=== PATIENT | male | born 1945 | race Caucasian/White ===

== ENCOUNTER 2016-10-17 09:22 | Inpatient (IN) | payer OTHER, BC ==
--- NOTE | 2016-10-17 09:50 | EDPHY ---
H & P Stated Complaint: increasing encephalopathy Source: Patient Exam Limitations: Clinical condition - Personal History Current Tetanus Diphtheria and Acellular Pertussis (TDAP): Yes - Medical/Surgical History Hx Asthma: No Hx Chronic Respiratory Disease: No Hx Diabetes: No Hx Cardiac Disease: Yes Hx Renal Disease: No Hx Cirrhosis: No Hx Alcoholism: No Hx HIV/AIDS: No Hx Splenectomy or Spleen Trauma: No Other PMH: HTN, prostate removed, maleria, cellulitis, bells palsy, vertigo, craniotomy for glioblastoma multiform, - Social History Smoking Status: Never smoked Time Seen by Provider: 10/17/16 09:24 HPI/ROS: CHIEF COMPLAINT: Weakness, history of glioblastoma multiform HISTORY OF PRESENT ILLNESS: difficult to obtain full HPI the patient is altered and there are no family members at bedside. They report from EMS is that there is possibility of increased swelling, the patient has a history of glioblastoma multiform. The patient denies any headache any kind. He is alert to person and place but disoriented to time. He denies any falls that he is aware of. No obtainable modifying factors for this at this time. We will obtain more history upon arrival of the spouse. REVIEW OF SYSTEMS: Ten systems reviewed and are negative unless otherwise noted in the HPI EXAMINATION General Appearance: Alert, no distress Head: normocephalic, atraumatic Eyes: Pupils equal and round, no conjunctival pallor or injection EOMs intact. ENT, Mouth: Mucous membranes moist . Mild erythema. No edema. Uvula midline. Neck: Normal inspection, supple, non-tender Respiratory: Lungs are clear to auscultation . No wheezing, rhonchi, consolidation or diminishment Cardiovascular: Regular rate and rhythm. No murmur. Pulses intact distally. Gastrointestinal: Abdomen is soft and nontender . Nonacute Back: non-tender, no bony abnormalities Neurological: alert to person and place. Disoriented to time. There is no focal deficit on examination of the cranial nerves. Strength is 5/5 in all limbs. No nystagmus. No pronator drift Skin: Warm and dry, no rash Extremities: Nontender, no pedal edema Psychiatric: flat affect. No seizure-like activity DIFFERENTIAL DIAGNOSES: Including but not limited to general weakness, chronic condition, worsening condition related to glioblastoma multiform, hypokalemia, hyponatremia, influenza, strep MDM: 9:44am History of glioblastoma multiform of uncertain chronicity of state. Patient is by himself at this time but reported that his family on the way. He does not have any headache. He is not sure if he fell, but he is disoriented to time. He is alert to person and place. He is in no acute distress. I did order a stat CT scan of the head and we will await family members for further workup. The report from EMS is that the feeling is like him to be placed in hospice for uncertain details will discuss with an MRI. I attempted to contact the with no success 10:15 a.m. I spoke with the on-call physician from [facility], Dr. Reilly. he informed me that the on-call physician overnight spoke with the patient's . The was concerned that she was having difficulty waking him up, thus they recommended he present to the ER. At time of my examination he is awake without stimulus. There is no mention of fall, seizure-like activity or other injuries or complaints. The is yet to arrive will speak with her upon her arrival. Dr. Reilly said that the steroids had recently increased this seemed to help his deterioration but there is no other information. He did note that a repeat MRI has been planned but not obtained at this time. 11:45 a.m. I spoke with the regarding the patient's care. They are requesting hospice evaluation and this is been ordered. She informed me that there was an MRI performed within the last 2 weeks. I have paged the PA with his oncologist to discuss whether he needs an MRI here prior to disposition. He has not exhibited any seizure-like activities, he is receiving his Keppra and Vimpat IV piggyback at this time. No further concerns or questions at this time. 3:30pm I have re-evaluated the patient. He is in no acute distress. Vital signs are stable we are still waiting for definitive determination whether the patient is hospice candidate versus admission versus discharge home for further evaluation. 4:40 p.m. have discussed the case with the patient's multiple times. The patient is not ready to make that decision on hospice versus ongoing care. Thus we will proceed with admission. Patient and the spouse are more comfortable with this plan and then with deciding about hospice today. He remains hemodynamically stable, but he is not tolerating p.o. on his own. He will benefit from IV fluid resuscitation and possibly the nasogastric tube placement for ongoing medications. I discussed case with the hospitalist Dr. Hernandez, and she will admit the patient for further care. SUPERVISION:Patient was evaluated in conjunction with the supervising physician. Please see their note for details. (Carlo Ram) Constitutional: Initial Vital Signs Temperature (C) 37.2 C 10/17/16 09:22 Heart Rate 81 10/17/16 09:22 Respiratory Rate 18 10/17/16 09:22 Blood Pressure 125/75 H 10/17/16 09:22 O2 Sat (%) 91 L 10/17/16 09:22 O2 Delivery Mode Room Air O2 (L/minute) 3 Allergies/Adverse Reactions: Iodinated Contrast Media - Oral and [Iodinated Contrast Media - IV Dye] Allergy (Verified 03/27/15 16:44) oxycodone HCl [From Percocet] Allergy (Verified 10/17/16 21:25) Home Medications: Medication Instructions Recorded Bevacizumab [Avastin] 0 mg IV Q14D 11/04/15 Lisinopril [Zestril 20 mg (*)] 20 mg PO DAILY #0 tab 11/11/15 Acetaminophen [Tylenol 325mg (*)] 325 mg PO DAILY PRN 10/17/16 Dexamethasone [Decadron 4 MG (*)] 2 mg PO BID 10/17/16 Hydrochlorothiazide [HCTZ (*)] 25 mg PO DAILY 10/17/16 Lacosamide [Vimpat 50 mg (*)] 150 mg PO BID 10/17/16 Polyethylene Glycol 3350 [Miralax 17 gm PO DAILY PRN 10/17/16 17 gm (*)] Warfarin Sodium [Coumadin 5MG (*)] 10 mg PO SUTH 10/17/16 Warfarin Sodium [Coumadin 7.5MG 7.5 mg PO MOTUWEFRSA 10/17/16 (*)] levETIRAcetam [Keppra Oral Liquid] 15 ml PO BID 10/17/16 Medical Decision Making Other Provider: I evaluated and participated in the management of the patient. I also evaluated the patient independently. My co-signature indicates that I have reviewed this chart and I agree with the findings and plan of care as documented. My personal H&P findings include: [ ] This is a 71-year-old male with history of glioblastoma multiform a who presents to the emergency department for weakness. On initial presentation the history was very limited as there is no family members were present with the patient. Patient was alert but oriented only to person and place. He cannot describe exactly why he is here but he does tell me that he is weak. Examination demonstrates an 8-year-old male alert, no obvious distress, neurologic exam: Patient is alert and oriented to person and place but disoriented to time. Neurologic exam is grossly nonfocal. Patient did have a CT scan obtained on arrival which demonstrates no hemorrhage. Patient's did present and reports to me that he has been quite weak and complaining of a sore throat. No fever. Multiple conversations were held between the patient's , the patient, case filler, hospice, and Carlo Ram the PA. Patient's course was also discussed with Dr. Reilly, on-call for [facility]. Initially plans were made the patient would be transferred from the emergency department to hospice. However the and patient would like to discussed treatment options, if any, with patient's primary oncologist, Dr. Roman. It is unclear to me if there are further palliative or active chemotherapeutic or radiation treatments available for this patient. However, I do believe that the is no longer able to care for the patient at home given his significant weakness. Until the situation has been sorted, patient was admitted to the hospital pending oncology evaluation, oncology consultation, palliative Care consultation , as well as treatment for his generalized weakness. (Sarai Peck) - Data Points Laboratory Results: Laboratory Results 10/17/16 10:40 10/17/16 10:40 Medications Given: Discontinued Medications Enoxaparin Sodium (Lovenox) 40 mg SC DAILY [facility] Stop: 04/16/17 08:59 Last Admin: 10/18/16 10:21 Dose: 40 mg Hydrochlorothiazide (Hydrochlorothiazide) 25 mg PO DAILY [facility] Stop: 04/16/17 08:59 Last Admin: 10/18/16 10:22 Dose: 25 mg Lacosamide 200 mg/ Sodium (Chloride) 70 mls @ 280 mls/hr IV EDNOW ONE Stop: 10/17/16 10:57 Last Admin: 10/17/16 11:25 Dose: 70 mls Levetiracetam 500 mg/ Sodium (Chloride) 105 mls @ 420 mls/hr IV EDNOW ONE Stop: 10/17/16 10:57 Last Admin: 10/17/16 11:42 Dose: 105 mls Sodium Chloride (Ns) 500 mls @ 0 mls/hr IV ONCE ONE PRN Reason: Wide Open Stop: 10/17/16 10:55 Last Admin: 10/17/16 11:25 Dose: 500 mls Departure - Departure Disposition: [facility] Acute Clinical Impression: Glioblastoma multiforme, Encephalopathy, Weakness Condition: Good
--- NOTE | 2016-10-17 10:06 | CT ---
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 Comparison: MRI January 2016. Technique: Axial computed tomographic images of the brain without contrast. Dose reduction techniques were utilized. Findings: Calcifications noted in the left temporal lobe in the region of the AVM. Calcifications in the left frontal lobe cortex and subcortical white matter at the level of the lateral ventricles pos terior parasylvian region corresponding to the region of CyberKnife glioblastoma multiforme. No evide nce of acute intraparenchymal hemorrhage or epidural/subdural hematomas. Hypodensities in the brainst em from mild white matter disease. Ventricles, cisterns, and sulci are widened consistent with atroph y. No hydrocephalus, midline shift/herniation, or epidural/subdural hematomas. No acute intraparenchy mal hemorrhage or mass effect. Cerebrovascular atherosclerosis. Hypodensities in the white matter of bilateral cerebral hemispheres. Bone windows demonstrate no displaced fractures. Paranasal sinuses a nd mastoid air cells are clear. Impression: 1. Left temporal and frontal calcifications from CyberKnife treated AVM and glioblastoma multiforme. 2. No acute hemorrhage, hydrocephalus, or mass effect. 3. Cerebrovascular atherosclerosis. 4. No definite acute infarct. 5. Mild diffuse atrophy and moderate microvascular ischemic gliosis. 6. Consider MRI of the brain without and with contrast enhancement, if there is continued clinical co ncern. Findings and recommendations discussed with Emergency Department, Carlo Ram PA-C at 0955 hours to day. Final report concurs with initial preliminary interpretation.
[2016-10-17] MEDS ORDERED: LACOSAMIDE 200 MG in NS 50 ML IV ONE (10:43)
[2016-10-17] MEDS ORDERED: levETIRAcetam 500 MG in NS 100 ML IV ONE (10:43)
[2016-10-17] MEDS ORDERED: NS 500 ML IV ONE (10:54)
[2016-10-17 11:06] LABS: % IMMATURE GRANULYOCYTES 0.2 % (0.0-1.1); ABSOLUTE IMMATURE GRANULOCYTES 0.02 10^3/uL (0.00-0.10); ADD DIFF? NO; ADD MORPH? NO; ADD SCAN? NO; ATYPICAL LYMPHOCYTE FLAG 0 (0-99); FRAGMENT RBC FLAG 0 (0-99); HEMATOCRIT 46.6 % (40.0-51.0); HEMOGLOBIN 15.9 g/dL (13.7-17.5); LEFT SHIFT FLG 0 (0-99); LIPEMIA HEMOLYSIS FLAG 90 (0-99); MEAN CELL HEMOGLOBIN CONCENTR. 34.1 g/dL (32.4-36.7); MEAN CELL VOLUME 90.8 fL (81.5-99.8); PLATELET CLUMPS FLAG 0 (0-99); PLATELET COUNT 171 10^3/uL (150-400); RED BLOOD CELL COUNT 5.13 10^6/uL (4.40-6.38); RED CELL DISTRIBUTION WIDTH 14.4 % (11.5-15.2)
[2016-10-17 11:15] LABS: INR 3.17 (0.83-1.16)
[2016-10-17 11:16] LABS: APTT 42.1 SEC (23.0-38.0)
[2016-10-17 11:29] LABS: ALANINE AMINOTRANSFERASE 37 IU/L (21-72); ALBUMIN 3.5 g/dL (3.5-5.0); ALKALINE PHOSPHATASE 71 IU/L (38-126); ANION GAP 12 mEq/L (8-16); ASPARTATE AMINOTRANSFERASE 26 IU/L (17-59); BILIRUBIN,TOTAL 1.1 mg/dL (0.1-1.4); CARBON DIOXIDE 27 mEq/l (22-31); CHLORIDE 106 mEq/L (97-110); CREATININE 0.9 mg/dL (0.7-1.3); GLOMERULAR FILTRATION RATE > 60; GLUCOSE 89 mg/dL (70-100); POTASSIUM 3.6 mEq/L (3.5-5.2); SODIUM 145 mEq/L (134-144); TOTAL PROTEIN 6.6 g/dL (6.3-8.2)
[2016-10-17] MEDS ORDERED: ACETAMINOPHEN 325 MG TAB PO PRN ×2 (20:50→20:53)
[2016-10-17] MEDS ORDERED: HYDROmorphONE/DILAUDID 1 MG/ML SYR IVP PRN (20:50)
[2016-10-17] MEDS ORDERED: PROMETHAZINE HCL 25 MG/ML INJ IVP PRN (20:50)
[2016-10-17] MEDS ORDERED: LORazepam 2 MG/ML INJ IVP PRN (20:50)
[2016-10-17] MEDS ORDERED: oxyCODONE IR 5 MG TAB PO PRN (20:50)
[2016-10-17] MEDS ORDERED: LORazepam 0.5 MG TAB PO PRN (20:50)
[2016-10-17] MEDS ORDERED: ONDANSETRON DISINTEGRATING 4 MG TAB PO PRN (20:50)
[2016-10-17] MEDS ORDERED: ONDANSETRON 4 MG/2 ML VIAL IVP PRN (20:50)
[2016-10-17] MEDS ORDERED: POLYETHYLENE GLYCOL 3350 17 GM PKT PO PRN (20:53)
[2016-10-17] MEDS: levETIRAcetam 500 MG/5 ML UDCUP PO SCH (21:46)
[2016-10-17] MEDS: DEXAMETHASONE 2 MG TAB PO SCH (21:46)
[2016-10-17] MEDS: WARFARIN SODIUM 7.5 MG TAB PO SCH (21:50)
[2016-10-17] MEDS: LACOSAMIDE 50 MG TAB PO SCH (21:50)
[2016-10-17] MEDS: NS 1,000 ML IV SCH (21:57)
[2016-10-17 22:53] LABS: COLOR YELLOW; LEUKOCYTE ESTERASE,URINE NEGATIVE (NEGATIVE); NITRITE,URINE NEGATIVE (NEGATIVE)
[2016-10-17 22:55] LABS: MUCUS TRACE /lpf (NONE-1+)
--- NOTE | 2016-10-17 23:11 | PDGENHP ---
History and Physical - Chief Complaint generalized weakness - History of Present Illness 71 yo M with hx of GBM currently on avastin therapy admitted with worsening weakness and difficulty caring for him at home. Patient has had expressive aphasia for some time, per and son in law, this is recently much worse. He is also getting so weak that he is no longer able to ambulate independently safely. He has not been tolerating his medications at home and unable to get to the bathroom. He is now essentially non verbal completely, though he had been able to communicate some until recently. He has also having increasing difficulty managing his secretions, and seems to have phlegm at all times in his chest. Family has been uncertain when they should consider transitioning to hospice, as they feel that he has been responding to the avastin, and they are wondering if he will continue to improve, or when to decide to discontinue treatment and go to comfort only. He is followed by Dr. Roman, but they cannot see him until later this week. Family came to [facility] they feel they can not care for him at home. History Information - Allergies/Home Medication List Allergies/Adverse Reactions: Iodinated Contrast Media - Oral and [Iodinated Contrast Media - IV Dye] Allergy (Verified 03/27/15 16:44) oxycodone HCl [From Percocet] Allergy (Verified 10/17/16 21:25) Home Medications: Bevacizumab [Avastin] 0 mg IV Q14D 11/04/15 [Last Taken 10/12/16] Acetaminophen [Tylenol 325mg (*)] 325 mg PO DAILY PRN 10/17/16 [Last Taken Unknown] Dexamethasone [Decadron 4 MG (*)] 2 mg PO BID 10/17/16 [Last Taken 10/16/16] Hydrochlorothiazide [HCTZ (*)] 25 mg PO DAILY 10/17/16 [Last Taken 10/16/16] Lacosamide [Vimpat 50 mg (*)] 150 mg PO BID 10/17/16 [Last Taken 10/17/16] Polyethylene Glycol 3350 [Miralax 17 gm (*)] 17 gm PO DAILY PRN 10/17/16 [Last Taken Unknown] Warfarin Sodium [Coumadin 5MG (*)] 10 mg PO SUTH 10/17/16 [Last Taken 10/16/16 10mg] Warfarin Sodium [Coumadin 7.5MG (*)] 7.5 mg PO MOTUWEFRSA 10/17/16 [Last Taken Unknown] levETIRAcetam [Keppra Oral Liquid] 15 ml PO BID 10/17/16 [Last Taken 10/17/16] I have personally reviewed and updated: family history, medical history, social history, surgical history - Past Medical History cancer (GBM, diagnosed in 04/08), DVT, hypertension, pulmonary embolism, seizures - Surgical History Additional surgical history: GBM resection - Family History Positive for: non-pertinent - Social History Smoking Status: Never smoked Alcohol Use: None Drug Use: None Additional social history: , son in law present as well Review of Systems Review of Systems: unobtainable as patient is non verbal Physical Exam Temp Pulse Resp BP Pulse Ox 36.9 C 106 H 22 H 150/100 H 96 10/17/16 20:10 10/17/16 20:10 10/17/16 20:10 10/17/16 20:10 10/17/16 20:10 O2 (L/minute) 3 Constitutional: chronically ill appearing, uncomfortable, unkempt Eyes: PERRL Ears, Nose, Mouth, Throat: moist mucous membranes, poor dentition Cardiovascular: regular rate and rhythym, no murmur, rub, or gallop Respiratory: no respiratory distress, inspiratory crackles, bronchial breath sounds Gastrointestinal: normoactive bowel sounds, soft, non-tender abdomen Genitourinary: no bladder fullness Skin: warm, normal color Musculoskeletal: full muscle strength, no muscle tenderness Neurologic: CN II-XII Intact Psychiatric: agitated, other (non verbal, moves all 4 spontaneously, impulsive) , No interacting appropriately Lab Data & Imaging Review 10/17/16 10:40 10/17/16 10:40 WBC 9.22 10^3/uL (3.80-9.50) 10/17/16 10:40 RBC 5.13 10^6/uL (4.40-6.38) 10/17/16 10:40 Hgb 15.9 g/dL (13.7-17.5) 10/17/16 10:40 Hct 46.6 % (40.0-51.0) 10/17/16 10:40 MCV 90.8 fL (81.5-99.8) 10/17/16 10:40 MCH 31.0 pg (27.9-34.1) 10/17/16 10:40 MCHC 34.1 g/dL (32.4-36.7) 10/17/16 10:40 RDW 14.4 % (11.5-15.2) 10/17/16 10:40 Plt Count 171 10^3/uL (150-400) 10/17/16 10:40 MPV 11.0 fL (8.7-11.7) 10/17/16 10:40 Neut % (Auto) 72.6 % (39.3-74.2) 10/17/16 10:40 Lymph % (Auto) 11.5 % (15.0-45.0) L 10/17/16 10:40 [place] % (Auto) 12.7 % (4.5-13.0) 10/17/16 10:40 Eos % (Auto) 2.6 % (0.6-7.6) 10/17/16 10:40 Baso % (Auto) 0.4 % (0.3-1.7) 10/17/16 10:40 Nucleat RBC Rel Count 0.0 % (0.0-0.2) 10/17/16 10:40 Absolute Neuts (auto) 6.69 10^3/uL (1.70-6.50) H 10/17/16 10:40 Absolute Lymphs (auto) 1.06 10^3/uL (1.00-3.00) 10/17/16 10:40 Absolute Monos (auto) 1.17 10^3/uL (0.30-0.80) H 10/17/16 10:40 Absolute Eos (auto) 0.24 10^3/uL (0.03-0.40) 10/17/16 10:40 Absolute Basos (auto) 0.04 10^3/uL (0.02-0.10) 10/17/16 10:40 Absolute Nucleated RBC 0.00 10^3/uL (0-0.01) 10/17/16 10:40 Immature Gran % 0.2 % (0.0-1.1) 10/17/16 10:40 Immature Gran # 0.02 10^3/uL (0.00-0.10) 10/17/16 10:40 PT 33.0 SEC (12.0-15.0) H 10/17/16 10:40 INR 3.17 (0.83-1.16) H 10/17/16 10:40 APTT 42.1 SEC (23.0-38.0) H 10/17/16 10:40 Sodium 145 mEq/L (134-144) H 10/17/16 10:40 Potassium 3.6 mEq/L (3.5-5.2) 10/17/16 10:40 Chloride 106 mEq/L (97-110) 10/17/16 10:40 Carbon Dioxide 27 mEq/l (22-31) 10/17/16 10:40 Anion Gap 12 mEq/L (8-16) 10/17/16 10:40 BUN 29 mg/dL (7-23) H 10/17/16 10:40 Creatinine 0.9 mg/dL (0.7-1.3) 10/17/16 10:40 Estimated GFR > 60 10/17/16 10:40 Glucose 89 mg/dL (70-100) 10/17/16 10:40 Calcium 9.0 mg/dL (8.5-10.4) 10/17/16 10:40 Total Bilirubin 1.1 mg/dL (0.1-1.4) 10/17/16 10:40 AST 26 IU/L (17-59) 10/17/16 10:40 ALT 37 IU/L (21-72) 10/17/16 10:40 Alkaline Phosphatase 71 IU/L (38-126) 10/17/16 10:40 Total Protein 6.6 g/dL (6.3-8.2) 10/17/16 10:40 Albumin 3.5 g/dL (3.5-5.0) 10/17/16 10:40 Urine Color YELLOW 10/17/16 22:25 Urine Appearance CLEAR 10/17/16 22:25 Urine pH 5.0 (5.0-7.5) 10/17/16 22:25 Ur Specific [place] 1.025 (1.002-1.030) 10/17/16 22:25 Urine Protein NEGATIVE (NEGATIVE) 10/17/16 22:25 Urine Ketones TRACE (NEGATIVE) H 10/17/16 22:25 Urine Blood 2+ (NEGATIVE) H 10/17/16 22:25 Urine Nitrate NEGATIVE (NEGATIVE) 10/17/16 22:25 Urine Bilirubin NEGATIVE (NEGATIVE) 10/17/16 22:25 Urine Urobilinogen NEGATIVE EU (0.2-1.0) 10/17/16 22:25 Ur Leukocyte Esterase NEGATIVE (NEGATIVE) 10/17/16 22:25 Urine RBC 5-10 /hpf (0-3) H 10/17/16 22:25 Urine WBC 1-3 /hpf (0-3) 10/17/16 22:25 Ur Epithelial Cells TRACE /lpf (NONE-1+) 10/17/16 22:25 Urine Mucus TRACE /lpf (NONE-1+) 10/17/16 22:25 Urine Glucose NEGATIVE (NEGATIVE) 10/17/16 22:25 Influenza Typ A,B (DFA) NEGATIVE FOR FLU (NEGATIVE) 10/17/16 10:55 Group A Strep Screen NEGATIVE (NEGATIVE) 10/17/16 10:40 Group A Strep DNA NEGATIVE (NEGATIVE) 10/17/16 Unknown Visualized and Interpreted imaging results: Yes Interpretation: head CT without acute mass or hemorrhage, no significant change from prior Assessment & Plan Assessment: 71 yo M with GBM presenting with worsening weakness and FTT # generalized weakness/FTT: in setting of GBM and progressive disease. At this point, do not suspect that there is likely to be a secondary process responsible for his worsening weakness and aphasia. Discussed with family at length, they realize that hospice is likely in his future, though they are unclear if they should hope to see more improvements from avastin, as next # GBM: patient has likely exceeded his life expectancy already at this point, currently on avastin, no changes noted on imaging, though he continues to decline clinically. Palliative consult requested. Likely appropriate for hospice # dysphagia: patient noted to be having difficulty managing his secretions, given suction at bedside. Will get cxr to eval for aspiration. No abx for now # sz d/o: continue op medications, if patient unable to take po meds will need to transition to IV # hx of PE/DVT: INR therapeutic, will continue warfarin # dispo: IP status, will likely need > 48 hours for eval/mgmt of above Patient new to my care. Old records reviewed and summarized as above. Care plan reviewed with ER doctor, further hx obtained from patients present at bedside.
--- NOTE | 2016-10-17 23:22 | DX ---
Portable chest, single view. HISTORY: History of glioblastoma multiforme. Increasing weakness and shortness of breath. COMPARISON: October 2015. FINDINGS: There is a poor inspiratory effort. There is opacification in the right lower lobe suggesti ng pneumonia and atelectasis. Mild atelectasis left lower lobe. Heart size is stable. IMPRESSION: Probable pneumonia right lower lobe and mild atelectasis. Mild atelectasis left lower lob e.
[2016-10-18] MEDS: NS 1,000 ML IV SCH (08:15)
[2016-10-18] MEDS ORDERED: HYDROCHLOROTHIAZIDE 25 MG TAB PO SCH (09:00)
[2016-10-18] MEDS ORDERED: ENOXAPARIN 40 MG/0.4 ML SYR SC SCH (09:00)
[2016-10-18] MEDS: DEXAMETHASONE 2 MG TAB PO SCH ×2 (10:21→21:05)
[2016-10-18] MEDS: levETIRAcetam 500 MG/5 ML UDCUP PO SCH ×2 (10:22→21:33)
[2016-10-18] MEDS: LACOSAMIDE 50 MG TAB PO SCH ×2 (10:22→21:33)
[2016-10-18] MEDS: LISINOPRIL 20 MG TAB PO SCH (10:23)
--- NOTE | 2016-10-18 10:25 | HOSPPROG ---
Hospitalist Progress Note Assessment/Plan: DIAGNOSIS: # suspect aspiration pneumonitis # ongoing dysphagia largely neurologic in origin # expressive aphasia of neurologic origin due to his glioblastoma # hypernatremia and suspect dehydration # Failure to thrive with severe deconditioning generalized weakness # progressive glioblastoma multiforme # History of seizure disorder # History of PE and DVT PLANS: -at this point will add antibiotic to cover for aspiration pneumonitis after discussion with his -general supportive care -palliative consult is ordered and I think this will be very helpful for his ; hospice would be very reasonable for him, particularly as it is expected that he will continue to have aspiration and recurrences of episodes like this -he will at this time either require placement in a care facility or somewhat will need to be found to give extensive assistance to his in caring for him at home -will minimize oral medicines at this point in order to reduce aspiration risk -may need to consider potentially tube feeding if hospice or palliative choices areavoided at this time SUBJECTIVE: The patient is unable to articulate words that are discernible and symptom evaluation is not possible, however he looks reasonably comfortable though quite weak and debilitated OBJECTIVE Vitals reviewed: Still having significant fevers with some tachycardia and tachypnea, however blood pressures are elevated Exam: Awake but fairly lethargic, however does attempt to respond to questions and does follow commands skin warm dry color ok resps not labored lungs very diminished and rhonchorous breath sounds heart regular abd soft nondistended, appears nontender, bowel sounds present limbs warm, no edema iv site ok Objective: Vital Signs Temp Pulse Resp BP Pulse Ox 36.3 C 113 H 18 138/97 H 92 10/18/16 07:34 10/18/16 07:34 10/18/16 07:34 10/18/16 07:34 10/18/16 07:34 10/17/16 10/18/16 10/19/16 06:59 06:59 06:59 Intake Total 1275 Output Total 300 Balance 975 PT 33.0 SEC (12.0-15.0) H 10/17/16 10:40 INR 3.17 (0.83-1.16) H 10/17/16 10:40 ICD10 Worksheet Patient Problems: Problems Problem Status Diagnosed Elevated troponin Acute Encephalopathy Acute Expressive aphasia Acute Glioblastoma multiforme Acute Palliative care encounter Acute Weakness Acute Aphasia Acute
--- NOTE | 2016-10-18 10:34 | GCON ---
[f rep st] CONSULTATION ONCOLOGY CONSULTATION NOTE. REASON FOR CONSULTATION: Progressive decline in mental status with history of glioblastoma multiforme. HISTORY OF PRESENT ILLNESS: Eldon Gupta is a 71-year-old male diagnosed with left frontal lobe multicentric glioblastoma multiforme in March of 2015. The disease was unresectable and he was initially treated with temozolomide and radiation therapy. He progressed after several months and was started on Avastin in June of 2015. He has been relatively stable now for over a year while on Avastatin. He was diagnosed with large volume pulmonary emboli in October of 2015, and has been on Coumadin since. He underwent a course of stereotactic radiation to the tumor bed with Dr. Guevara in February 2016. More recently he has been declining with decreased mentation. He was seen by Dr. Roman about 2 weeks ago in the office. Dr. Roman was concerned about the possibility of progressive disease, and increased his Decadron dose to see if that would improve some of his symptoms. His reports that he really had no improvement with the higher dose. He had a CT scan done last night after presenting to the emergency room with increasing confusion and altered mental status. The CT was compared to an MRI from January of 2016. There was no evidence of acute hemorrhage, hydrocephalus or mass effect. He had evidence of left temporal and left frontal calcifications from CyberKnife therapy for previous treatments for both the GVM and temporal AVM. The patient's is with him this morning. She reports that he has not been eating and has had difficulty swallowing any type of food, as well as having difficulty handling his secretions. In the emergency room a chest x-ray showed a right lower lobe infiltrate and left lower lobe atelectasis. Last evening he had a temperature to 38.2. The patient is a DNR. His states that she is no longer able to care for him at home. She is open to the idea of hospice, but is interested in identifying anything that may be able to temporarily improve his mental status. The patient is aphasic but is able to understand. PAST MEDICAL HISTORY: Pulmonary emboli, seizures, prostate cancer in 2010 treated with radical prostatectomy. FAMILY HISTORY: His father had a DVT. SOCIAL HISTORY: He is to [place], and has a daughter. REVIEW OF SYSTEMS: Difficult to obtain, and notable for a fever last evening with decreased p.o. intake, and decreased mental status. The patient denies pain. Review of systems otherwise negative, other than HPI. PHYSICAL EXAMINATION: GENERAL: He is an elderly male with audible gurgling. He is sleepy but responds to his name. VITAL SIGNS: Blood pressure 138/97, heart rate 113, respirations 18, O2 saturation 92% on 3 L, T-max last night 38.2. HEENT: Pupils are equal. LUNGS: With bilateral rhonchi, decreased breath sounds at the bases. HEART: Tachycardiac. ABDOMEN: Soft, nontender. NEUROLOGIC: The patient is able to follow simple commands. EXTREMITIES: No edema. LABORATORY DATA: White blood cell count 9.2, hematocrit 46, platelets 171, INR of 3.2, metabolic panel unremarkable. Urine with 2+ blood and 5 to 10 RBCs. Chest x-ray, probable right lower lobe infiltrate with bilateral lower lobe atelectasis. IMPRESSION: This is a 71-year-old male who is now a year and a half out from initial diagnosis of unresectable GBM. He has been on Avastin therapy for over a year. While imaging studies have not shown obvious progression, clinically the patient is deteriorating with decreased mentation, impaired swallowing, poor p.o. intake, and inability to clear secretions. The patient has advanced directives and is DNR. His is no longer able to care for him at home. They are open to a discussion with Palliative Care, and I suspect that hospice will ultimately be most appropriate. Given the fever last evening, and the chest x-ray findings, the patient has likely aspirated. While this may be able to be temporarily treated with antibiotics, it does not address the overall larger picture, and the patient will likely continue to be an ongoing aspiration risk. We will plan on a trial of IV antibiotics. Palliative care has been consulted. We will continue to follow along with you. /[id number]/MODL MTDD
[2016-10-18] MEDS: ERTAPENEM 1 GM in NS 100 ML IV SCH (11:39)
--- NOTE | 2016-10-18 15:47 | PDPCPN ---
Palliative Care Progress Note Assessment/Plan: Referring provider: Dr Bernard Reason for consult: Complex medical decision making Symptom control HPI: Eldon Gupta is a 71 yo male with PMH glio dx 03/2015 s/p radiation, chemo, immunotherapy admitted to the hospital for increasing weakness. Ct head with stable brain tumor and no acute bleed. CXR with RLL PNA being treated with antibiotics. On steroids per outpt oncology with recent increase 2 weeks ago for progressive weakness. Palliative care consulted for complex medical decision making. Met with Alma outside of the room. Alma spoke about how Avastin has really helped extend a good quality of life for Eldon over this past year. She states he began having increasing trouble with ambulation and speech about 1 month ago. Since then he has declined and is not total care for all needs. Alma states she is hoping to learn more about what may be wrong with Eldon as she is not sure if it is his brain tumor or possible aspiration PNA contributing to his decline. She understands his cancer is not curable but is not sure if the Avastin is working still or not and waiting to hear from Dr Roman who has known Eldon very well since his dx. She feels she cannot care for Eldon at home anymore and is unsure what next steps to take. They met with [facility] in the ED yesterday but are undecided about hospice because she does not feel she has all of the information with what is wrong. We discussed that this may be disease related with clinical decline despite recent head scans showing stable disease per . Eldon's mother was recently signed into hospice in [place] and the family has spoken of how peaceful this transition has been. Assessment: Physical: - Pain: none noted - tylenol PRN - Dysphagia - speech following - MOST form and previous conversations would indicate Eldon would not want dubhoff or PEG tube Emotional/psychological: Anxiety: - ativan PRN Advanced Care Planning: Is patient decisional?: No Code Status: DNR- most form with selective and no artificial nutrition POA: Alma is MDPOA. Plan: is waiting to hear from Dr Roman about whether avastin is continuing to work or if this decline is disease related. Decisions on hospice vs rehab/SNF pending clinical decision of whether this is all disease progression. Will continue discussions on goals of care. Subjective: nods to some questions Objective: Social History: to [place] for 40 years. 2 daughter local and involved. 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 Medication list reviewed ROS: unable to assess due to aphasia Functional assessment: PPS: 30% Functional status: dependent on ADLs, IADLs Vital Signs Temp Pulse Resp BP Pulse Ox 37.0 C 90 19 137/93 H 92 10/18/16 15:21 10/18/16 15:21 10/18/16 15:21 10/18/16 15:21 10/18/16 15:21 10/17/16 10/18/16 10/19/16 05:59 05:59 05:59 Intake Total 1275 Output Total 300 Balance 975 PT 33.0 SEC (12.0-15.0) H 10/17/16 10:40 INR 3.17 (0.83-1.16) H 10/17/16 10:40 Physical Exam - Physical Exam General Appearance: alert, no apparent distress Skin: normal color, warm/dry Neuro/Psych: other (aphasia) ICD10 Worksheet Patient Problems: Problems Problem Status Diagnosed Elevated troponin Acute Encephalopathy Acute Expressive aphasia Acute Glioblastoma multiforme Acute Palliative care encounter Acute Weakness Acute Aphasia Acute
[2016-10-18] MEDS: WARFARIN SODIUM 7.5 MG TAB PO SCH (16:34)
[2016-10-19] MEDS: levETIRAcetam 500 MG/5 ML UDCUP PO SCH ×2 (09:29→21:09)
[2016-10-19] MEDS: DEXAMETHASONE 2 MG TAB PO SCH ×2 (09:29→21:10)
[2016-10-19] MEDS: LACOSAMIDE 50 MG TAB PO SCH ×2 (09:29→21:10)
[2016-10-19] MEDS: LISINOPRIL 20 MG TAB PO SCH (09:30)
[2016-10-19] MEDS: ERTAPENEM 1 GM in NS 100 ML IV SCH (09:35)
[2016-10-19 13:26] LABS: INR 3.89 (0.83-1.16); PROTIME(PATIENT) 38.8 SEC (12.0-15.0)
[2016-10-19] MEDS: WARFARIN SODIUM 7.5 MG TAB PO SCH (16:11)
[2016-10-19] MEDS: NS 1,000 ML IV SCH (16:19)
--- NOTE | 2016-10-19 17:39 | HOSPPROG ---
Hospitalist Progress Note Assessment/Plan: DIAGNOSIS: # suspect aspiration pneumonitis # ongoing dysphagia largely neurologic in origin # expressive aphasia of neurologic origin due to his glioblastoma # hypernatremia and suspect dehydration # Failure to thrive with severe deconditioning generalized weakness # progressive glioblastoma multiforme # History of seizure disorder # History of PE and DVT PLANS: -at this point will add antibiotic to cover for aspiration pneumonitis after discussion with his -general supportive care -I reviewed the notes for after his palliative care consult. I did discuss with the patient and his that my expectation is that he will likely have a high risk of recurrent aspirations and this is something to keep in mind as they move forward with palliative decision making. They are hoping to talk to Dr. Roman for more opinion from him about the progress of his cancer -he will at this time either require placement in a care facility or somewhat will need to be found to give extensive assistance to his in caring for him at home -will minimize oral medicines at this point in order to reduce aspiration risk -he has now been recommended for dysphagia diet by the speech therapist SUBJECTIVE: patient denies discomfort or dyspnea at this time OBJECTIVE Vitals reviewed: Now afebrile with resolution of tachycardia and tachypnea Exam: Awake and still quite lethargic though more interactive today than yesterday and his speech is a little bit more articulate; seems oriented skin warm dry color ok resps not labored lungs very diminished and rhonchorous breath sounds heart regular abd soft nondistended, appears nontender, bowel sounds present limbs warm, no edema iv site ok Objective: Vital Signs Temp Pulse Resp BP Pulse Ox 36.6 C 71 20 109/85 H 95 10/19/16 16:05 10/19/16 16:05 10/19/16 16:05 10/19/16 16:05 10/19/16 16:05 10/18/16 10/19/16 10/20/16 06:59 06:59 06:59 Intake Total 1275 964 Output Total 300 200 Balance 975 764 PT 38.8 SEC (12.0-15.0) H 10/19/16 13:08 INR 3.89 (0.83-1.16) H 10/19/16 13:08 ICD10 Worksheet Patient Problems: Problems Problem Status Diagnosed Elevated troponin Acute Encephalopathy Acute Expressive aphasia Acute Glioblastoma multiforme Acute Palliative care encounter Acute Weakness Acute Aphasia Acute
--- NOTE | 2016-10-19 19:13 | SOAPPROG ---
SOAP Progress Note Assessment/Plan: Assessment: I spent approximately 40 minutes at the bedside with the patient and his , [place], and in coordination of care this evening. I think the patient is facing 4 significant life threatening issues: - GBM - Cerebral edema likely secondary to worsening tumor/XRT/or both - Aspiration pneumonia (which will likely recur) - Poor functional status (ECOG 4) For the above reasons, I think we have reached the point of diminishing returns for continued palliative therapy with Avastin. I would recommend best supportive care/inpatient hospice. His level of care required is greater that his family can safely provide at home. I think his prognosis is likely measured in weeks to a few months at best. I discussed this with the patient and his [place]. They are in agreement. Plan: Move toward inpatient Hospice care post discharge. Subjective: Patient is able to appreciate his situation and clearly state that he is in agreement with no further palliative therapy directed at his brain tumor, appreciates the fact that he can not go home, and is agreeable to moving toward hospice. Objective: Vital Signs Temp Pulse Resp BP Pulse Ox 36.6 C 71 20 109/85 H 95 10/19/16 16:05 10/19/16 16:05 10/19/16 16:05 10/19/16 16:05 10/19/16 16:05 10/17/16 10/18/16 10/19/16 23:59 23:59 23:59 Intake Total 264 098 1588 Output Total 200 100 950 Balance 300 675 614 PT 38.8 SEC (12.0-15.0) H 10/19/16 13:08 INR 3.89 (0.83-1.16) H 10/19/16 13:08 ICD10 Worksheet Patient Problems: Problems Problem Status Diagnosed Elevated troponin Acute Encephalopathy Acute Expressive aphasia Acute Glioblastoma multiforme Acute Palliative care encounter Acute Weakness Acute Aphasia Acute
[2016-10-20] MEDS: NS 1,000 ML IV SCH (02:30)
[2016-10-20 06:19] LABS: INR 4.1 (0.83-1.16); PROTIME(PATIENT) 40.5 SEC (12.0-15.0)
[2016-10-20] MEDS: ERTAPENEM 1 GM in NS 100 ML IV SCH (08:42)
[2016-10-20] MEDS: levETIRAcetam 500 MG/5 ML UDCUP PO SCH ×2 (08:42→20:22)
[2016-10-20] MEDS: LACOSAMIDE 50 MG TAB PO SCH ×2 (08:42→20:21)
[2016-10-20] MEDS: LISINOPRIL 20 MG TAB PO SCH (08:43)
[2016-10-20] MEDS: DEXAMETHASONE 2 MG TAB PO SCH ×2 (08:43→20:21)
--- NOTE | 2016-10-20 10:36 | HOSPPROG ---
Hospitalist Progress Note Assessment/Plan: DIAGNOSIS: # aspiration pneumonitis # ongoing dysphagia largely neurologic in origin # expressive aphasia of neurologic origin due to his glioblastoma, worsened by his pneumonia # hypernatremia and suspected dehydration # Failure to thrive with severe deconditioning generalized weakness # progressive glioblastoma multiforme # History of seizure disorder # History of PE and DVT PLANS: -continue antibiotic for aspiration pneumonitis -general supportive care; speech and physical therapies -I reviewed Dr. Roman note from last night. At this point the patient and are agreeable to proceeding with hospice evaluation and I will ask for [facility] to visit; Her discharge planning staff feel that she will not be a candidate for the inpatient care center at [facility] as she does not have enough pain management or other acute issues that way. However she would be a good care home facility candidate. The patient and would like to go home , and I feel that he could potentially do physical and occupational and speech therapies to the point where his could take care of med home with the help of hospice care and adaptive equipment at home after that. Will wait for the hospice evaluation and get their input on his circumstance -will minimize oral medicines at this point in order to reduce aspiration risk -he has now been recommended for dysphagia diet by the speech therapist and continue that evaluation Total bedside visit time with the patient and his today greater than 40 minutes Have reviewed with Dr. Lorna Barakat SUBJECTIVE: patient denies discomfort or dyspnea at this time OBJECTIVE Vitals reviewed: Now afebrile with resolution of tachycardia and tachypnea Exam: Awake and more alert and interactive today with speech still slightly mumbled but more articulate Overall still diffusely quite weak skin warm dry color ok resps not labored lungs very diminished and rhonchorous breath sounds heart regular abd soft nondistended, appears nontender, bowel sounds present limbs warm, no edema iv site ok Objective: Vital Signs Temp Pulse Resp BP Pulse Ox 36.4 C 62 16 126/80 H 98 10/20/16 08:55 10/20/16 08:55 10/20/16 08:55 10/20/16 08:55 10/20/16 08:55 10/19/16 10/20/16 10/21/16 06:59 06:59 06:59 Intake Total 964 1800 Output Total 200 1050 Balance 764 750 PT 40.5 SEC (12.0-15.0) H 10/20/16 05:47 INR 4.10 (0.83-1.16) H 10/20/16 05:47 ICD10 Worksheet Patient Problems: Problems Problem Status Diagnosed Elevated troponin Acute Encephalopathy Acute Expressive aphasia Acute Glioblastoma multiforme Acute Palliative care encounter Acute Weakness Acute Aphasia Acute
--- NOTE | 2016-10-20 13:33 | SOAPPROG ---
SOAP Progress Note Assessment/Plan: Assessment: 1) GBM with progressive decline in functional status-agree that hospice is most appropriate. Appreciate Dr. Roman's (his primary oncologist) visit last night. He will need inpatient care. [facility] to visit with family tomorrow morning. 2) History of PE-INR supratherapeutic Plan: 1) Continue IV antibiotics for now 2) Hospice eval in am 3) Hold coumadin for now. May need to transition to lovenox if unable to take po 4) DNR 10/20/16 13:33 Subjective: appears more awake, aphasic Objective: Vital Signs Temp Pulse Resp BP Pulse Ox 36.4 C 62 16 126/80 H 98 10/20/16 08:55 10/20/16 08:55 10/20/16 08:55 10/20/16 08:55 10/20/16 08:55 10/19/16 10/20/16 10/21/16 05:59 05:59 05:59 Intake Total 2764 Output Total 200 1050 Balance -200 1714 PT 40.5 SEC (12.0-15.0) H 10/20/16 05:47 INR 4.10 (0.83-1.16) H 10/20/16 05:47 Physical Exam - Physical Exam General Appearance: no apparent distress Respiratory: other (bilateral rhonchi) ICD10 Worksheet Patient Problems: Problems Problem Status Diagnosed Elevated troponin Acute Encephalopathy Acute Expressive aphasia Acute Glioblastoma multiforme Acute Palliative care encounter Acute Weakness Acute Aphasia Acute
[2016-10-20] MEDS ORDERED: WARFARIN SODIUM 5 MG TAB PO SCH (16:00)
[2016-10-21] MEDS: NS 1,000 ML IV SCH (01:00)
[2016-10-21 05:52] LABS: INR 3.94 (0.83-1.16); PROTIME(PATIENT) 39.2 SEC (12.0-15.0)
[2016-10-21] MEDS: LACOSAMIDE 50 MG TAB PO SCH ×2 (10:22→21:03)
[2016-10-21] MEDS: levETIRAcetam 500 MG/5 ML UDCUP PO SCH ×2 (10:22→21:03)
[2016-10-21] MEDS: LISINOPRIL 20 MG TAB PO SCH (10:23)
[2016-10-21] MEDS: DEXAMETHASONE 2 MG TAB PO SCH ×2 (10:23→21:02)
[2016-10-21] MEDS: ERTAPENEM 1 GM in NS 100 ML IV SCH (10:34)
--- NOTE | 2016-10-21 13:18 | SOAPPROG ---
SOAP Progress Note Assessment/Plan: A/P: * GBM with progressive decline in functional status: hospice is appropriate. Family unable to care for him at home. Was not felt to be candidate for inpatient hospice unit. Will need SNF with hospice. * Seizure: may not have received Keppra today. No HOOK. * History of PE: INR supratherapeutic. If recurrent seizure, consider CT (? bleed). * Aspiration PNA: abx. 10/21/16 13:12 Subjective: Seizure earlier. No HOOK. Improving post-ictal state. No pain. Family reports more noticeable R facial droop which is improving since sz. O: VSS. Gen: Answers questions appropriately, some dysarthria. Lungs: breathing comfortably. Neuro: Right facial droop. Objective: Vital Signs Temp Pulse Resp BP Pulse Ox 36.4 C 39 L 16 146/77 H 92 10/21/16 08:00 10/21/16 08:00 10/21/16 08:00 10/21/16 10:23 10/21/16 08:00 10/20/16 10/21/16 10/22/16 05:59 05:59 05:59 Intake Total 2764 2686 Output Total 1050 250 125 Balance 1714 2436 -125 PT 39.2 SEC (12.0-15.0) H 10/21/16 05:04 INR 3.94 (0.83-1.16) H 10/21/16 05:04 ICD10 Worksheet Patient Problems: Problems Problem Status Diagnosed Elevated troponin Acute Encephalopathy Acute Expressive aphasia Acute Glioblastoma multiforme Acute Palliative care encounter Acute Weakness Acute Aphasia Acute
[2016-10-21] MEDS ORDERED: levETIRAcetam 500 MG/5 ML UDCUP PO ONE (18:15)
--- NOTE | 2016-10-21 18:15 | HOSPPROG ---
Hospitalist Progress Note Assessment/Plan: DIAGNOSIS: # aspiration pneumonitis # ongoing dysphagia largely neurologic in origin # expressive aphasia of neurologic origin due to his glioblastoma, worsened by his pneumonia # hypernatremia and suspected dehydration # Failure to thrive with severe deconditioning generalized weakness # progressive glioblastoma multiforme # History of seizure disorder # History of PE and DVT PLANS: - will give an extra dose of Keppra today just in case he did not get his Keppra dose in especially as he did have seizure, seizure precautions -continue antibiotic for aspiration pneumonitis -general supportive care; speech and physical therapies - still working on his disposition. At this point I think it is still reasonable to look at possible correction facility rehabilitation to try and make him a better candidate for going home with hospice which is the desire of the patient and his . He apparently is not a candidate for the inpatient hospice center -will minimize oral medicines at this point in order to reduce aspiration risk -he has now been recommended for dysphagia diet by the speech therapist and continue that evaluation Have reviewed with Dr. Adelaide Dewitt SUBJECTIVE: patient denies discomfort or dyspnea at this time however earlier today while he was taking his Keppra medicine he appear to have a mild aspiration type episode. The Keppra is liquid form and is unclear whether at all stated in not. Several minutes after this the patient had a typical seizure for him which involves some right-sided facial twitching and lip -smacking followed by a slight decrease in alertness. This was witnessed by his family and nurses. He has had no recurrence since then. His last seizure was probably 3 or 4 months ago. OBJECTIVE Vitals reviewed: Mild systolic hypertension otherwise normal vitals and temperature Exam: Awake and alert and interactive today with speech still yet again better Overall still diffusely quite weak skin warm dry color ok resps not labored lungs very diminished but clear breath sounds today, nothing that sounds like new changes from possible aspiration heart regular abd soft nondistended, appears nontender, bowel sounds present limbs warm, no edema iv site ok Objective: Vital Signs Temp Pulse Resp BP Pulse Ox 36.7 C 54 L 16 146/81 H 93 10/21/16 16:00 10/21/16 16:00 10/21/16 16:00 10/21/16 16:00 10/21/16 16:00 10/20/16 10/21/16 10/22/16 06:59 06:59 06:59 Intake Total 1800 2686 Output Total 1050 250 125 Balance 750 2436 -125 PT 39.2 SEC (12.0-15.0) H 10/21/16 05:04 INR 3.94 (0.83-1.16) H 10/21/16 05:04 ICD10 Worksheet Patient Problems: Problems Problem Status Diagnosed Elevated troponin Acute Encephalopathy Acute Expressive aphasia Acute Glioblastoma multiforme Acute Palliative care encounter Acute Weakness Acute Aphasia Acute
[2016-10-22] MEDS: NS 1,000 ML IV SCH (04:05)
[2016-10-22 06:37] LABS: INR 3.48 (0.83-1.16); PROTIME(PATIENT) 35.5 SEC (12.0-15.0)
[2016-10-22] MEDS: levETIRAcetam 500 MG/5 ML UDCUP PO SCH ×2 (09:35→20:23)
[2016-10-22] MEDS: LACOSAMIDE 50 MG TAB PO SCH ×2 (09:35→20:23)
[2016-10-22] MEDS: DEXAMETHASONE 2 MG TAB PO SCH ×2 (09:35→20:23)
[2016-10-22] MEDS: LISINOPRIL 20 MG TAB PO SCH (09:35)
[2016-10-22] MEDS: ERTAPENEM 1 GM in NS 100 ML IV SCH (09:36)
--- NOTE | 2016-10-22 12:56 | HOSPPROG ---
Hospitalist Progress Note Assessment/Plan: DIAGNOSIS: # aspiration pneumonitis # ongoing dysphagia largely neurologic in origin # expressive aphasia of neurologic origin due to his glioblastoma, worsened by his pneumonia # hypernatremia and suspected dehydration # Failure to thrive with severe deconditioning generalized weakness # progressive glioblastoma multiforme # History of seizure disorder # History of PE and DVT PLANS: -Will recheck chest x-ray today -continue antibiotic for aspiration pneumonitis -general supportive care; speech and physical therapies -still working on his disposition. At this point I think it is still reasonable to look at possible [facility] facility rehabilitation to try and make him a better candidate for going home with hospice which is the desire of the patient and his . He apparently is not a candidate for the inpatient hospice center -will minimize oral medicines at this point in order to reduce aspiration risk -he has now been recommended for dysphagia 1 diet by the speech therapist, will continue that evaluation Have reviewed with Dr. Stewart SUBJECTIVE: patient denies discomfort or dyspnea at this time no recurrent episodes of aspiration or seizure since yesterday morning apparently he did stand briefly and walk very short distances with therapist with walker yesterday OBJECTIVE Vitals reviewed: Mild systolic hypertension otherwise normal vitals and temperature Exam: Awake and alert and interactive today; mild dysarthria of speech persists Overall still diffusely quite weak skin warm dry color ok resps not labored lungs very diminished but clear breath sounds today, nothing that sounds like new changes from possible aspiration heart regular abd soft nondistended, appears nontender, bowel sounds present limbs warm, no edema iv site ok Objective: Vital Signs Temp Pulse Resp BP Pulse Ox 36.6 C 50 L 16 157/83 H 93 10/22/16 12:12 10/22/16 12:12 10/22/16 12:12 10/22/16 12:12 10/22/16 12:12 10/21/16 10/22/16 10/23/16 06:59 06:59 06:59 Intake Total 2686 2559 Output Total 250 569 Balance 2436 2084 PT 35.5 SEC (12.0-15.0) H 10/22/16 04:50 INR 3.48 (0.83-1.16) H 10/22/16 04:50 ICD10 Worksheet Patient Problems: Problems Problem Status Diagnosed Elevated troponin Acute Encephalopathy Acute Expressive aphasia Acute Glioblastoma multiforme Acute Palliative care encounter Acute Weakness Acute Aphasia Acute
[2016-10-23] MEDS: NS 1,000 ML IV SCH (00:56)
[2016-10-23 05:56] LABS: % IMMATURE GRANULYOCYTES 0.2 % (0.0-1.1); ABSOLUTE IMMATURE GRANULOCYTES 0.01 10^3/uL (0.00-0.10); ADD DIFF? NO; ADD MORPH? NO; ADD SCAN? NO; ATYPICAL LYMPHOCYTE FLAG 0 (0-99); FRAGMENT RBC FLAG 0 (0-99); HEMATOCRIT 36.4 % (40.0-51.0); HEMOGLOBIN 12.2 g/dL (13.7-17.5); LEFT SHIFT FLG 10 (0-99); LIPEMIA HEMOLYSIS FLAG 80 (0-99); MEAN CELL HEMOGLOBIN 30.8 pg (27.9-34.1); MEAN CELL HEMOGLOBIN CONCENTR. 33.5 g/dL (32.4-36.7); MEAN CELL VOLUME 91.9 fL (81.5-99.8); MEAN PLATELET VOLUME 11.2 fL (8.7-11.7); PLATELET CLUMPS FLAG 0 (0-99); PLATELET COUNT 137 10^3/uL (150-400); RED BLOOD CELL COUNT 3.96 10^6/uL (4.40-6.38); RED CELL DISTRIBUTION WIDTH 14.1 % (11.5-15.2)
[2016-10-23 06:10] LABS: ANION GAP 4 mEq/L (8-16); CALCIUM 7.4 mg/dL (8.5-10.4); CARBON DIOXIDE 25 mEq/l (22-31); CHLORIDE 119 mEq/L (97-110); CREATININE 0.7 mg/dL (0.7-1.3); GLOMERULAR FILTRATION RATE > 60; GLUCOSE 93 mg/dL (70-100); POTASSIUM 3.3 mEq/L (3.5-5.2); SODIUM 148 mEq/L (134-144)
--- NOTE | 2016-10-23 09:51 | DX ---
Chest, PA and Lateral October 22, 2016 History: Follow-up aspiration pneumonia. Comparison: October 17, 2016. Findings: There is a poor inspiratory effort with bronchovascular crowding at both lower lobes. The o pacification in the right lower lobe has improved over the interval. There is diskoid atelectasis or scarring in the left lower lobe. Minimal pleural effusion or pleural scarring is seen posteriorly in the posterior sulcus. Diffuse demineralization. Degenerative change thoracic spine. Impression: Poor respiratory effort. There is, however, interval clearing of the right lower lobe pne umonia. Continued diskoid atelectasis or scarring left lower lobe.
[2016-10-23] MEDS: LISINOPRIL 20 MG TAB PO SCH (10:22)
[2016-10-23] MEDS: LACOSAMIDE 50 MG TAB PO SCH ×2 (10:22→21:06)
[2016-10-23] MEDS: levETIRAcetam 500 MG/5 ML UDCUP PO SCH ×2 (10:26→21:07)
[2016-10-23] MEDS: ERTAPENEM 1 GM in NS 100 ML IV SCH (10:30)
[2016-10-23] MEDS: DEXAMETHASONE 2 MG TAB PO SCH ×2 (10:31→21:06)
[2016-10-23] MEDS ORDERED: NS 500 ML IV ONE (14:50)
[2016-10-23] MEDS ORDERED: D5W 1/2 NS 1,000 ML IV SCH (15:00)
--- NOTE | 2016-10-23 15:03 | HOSPPROG ---
Hospitalist Progress Note Assessment/Plan: DIAGNOSES: # aspiration pneumonitis - improving very nicely by chest x-ray and clinical evaluation # worsening hypernatremia and suspected dehydration, with poor oral intake # acute decrease in alertness, responsiveness today likely due to his dehydration and hypernatremia # ongoing dysphagia largely neurologic in origin -some notable improvement with speech therapy sessions here so far # expressive aphasia of neurologic origin due to his glioblastoma, worsened by his pneumonia # Failure to thrive with severe deconditioning generalized weakness # progressive glioblastoma multiforme # History of seizure disorder # History of PE and DVT PLANS: -continue antibiotic for aspiration pneumonitis 1 more day -will begin IV hydration with a bolus of normal saline followed by fluid with D5 and potassium; follow electrolytes closely -general supportive care; speech and physical therapies -he has now been recommended for dysphagia 1 diet by the speech therapist, will continue that evaluation -remains on Keppra -DVT prophylaxis -still working on his disposition. At this point I think it is still reasonable to look at possible detention facility rehabilitation to try and make him a better candidate for going home with hospice which is the desire of the patient and his . He apparently is not a candidate for the inpatient hospice center Have reviewed with Dr. Stewart today SUBJECTIVE: Patient today is quite somnolent and barely arousable, am unable to to directly assess symptoms. His mentions that he complained of feeling funny in his right arm earlier but no other specific abnormalities. The patient did participate in therapies earlier today. OBJECTIVE Vitals reviewed: Mild systolic hypertension otherwise normal vitals and temperature Exam: Sleeping as I entered the room, I am able to arouse him to the point where he mumbles to me but he quickly falls back to sleep. No evidence of focal neurologic abnormalities but exam hindered by his somnolence skin warm dry color ok; some edema persists at the ankles but his skin turgor is otherwise poor right now resps not labored lungs very diminished but clear breath sounds heart regular abd soft nondistended, appears nontender, bowel sounds present limbs warm, mild bilateral ankle edema iv site ok Laboratory data: On chemistry he has now become hypernatremic and hypokalemic Chest x-ray today, my personal review and interpretation of the images: Notable decrease in right lower lobe infiltrates Objective: Vital Signs Temp Pulse Resp BP Pulse Ox 36.7 C 50 L 16 141/73 H 94 10/23/16 14:30 10/23/16 14:30 10/23/16 14:30 10/23/16 14:30 10/23/16 14:30 Microbiology 10/18/16 11:20 Blood Culture - Final Blood 10/18/16 11:17 Blood Culture - Final Blood Laboratory Results 10/23/16 04:48 10/23/16 04:48 10/22/16 10/23/16 10/24/16 06:59 06:59 06:59 Intake Total 2559 1600 Output Total 475 150 Balance 2084 1450 PT 35.5 SEC (12.0-15.0) H 10/22/16 04:50 INR 3.48 (0.83-1.16) H 10/22/16 04:50 ICD10 Worksheet Patient Problems: Problems Problem Status Diagnosed Elevated troponin Acute Encephalopathy Acute Expressive aphasia Acute Glioblastoma multiforme Acute Palliative care encounter Acute Weakness Acute Aphasia Acute
[2016-10-23] MEDS: D5W 1/2 NS W/ 20 KCl/L 1,000 ML IV SCH ×2 (15:14→23:53)
[2016-10-24] MEDS: D5W 1/2 NS W/ 20 KCl/L 1,000 ML IV SCH (06:08)
[2016-10-24] MEDS: ERTAPENEM 1 GM in NS 100 ML IV SCH (10:03)
[2016-10-24] MEDS: levETIRAcetam 500 MG/5 ML UDCUP PO SCH ×2 (10:03→20:58)
[2016-10-24] MEDS: LISINOPRIL 20 MG TAB PO SCH (10:03)
[2016-10-24] MEDS: DEXAMETHASONE 2 MG TAB PO SCH ×2 (10:04→20:59)
[2016-10-24] MEDS: LACOSAMIDE 50 MG TAB PO SCH ×2 (10:04→20:59)
--- NOTE | 2016-10-24 10:48 | SOAPPROG ---
SOAP Progress Note Assessment/Plan: Assessment: 1) Glioblastoma multiforme with functional decline 2) H/O DVT/PE 3) Pneumonia Plan: I met with patient's [place]. Case d/w Dr. Llanos of the hospitalist service. Patient has had a progressive decline due to his primary brain tumor. He is not a candidate for further cancer directed therapy. His does not want to pursue further aggressive care, and wishes to pursue hospice. She is unable to care for him at home, and evidently he does not qualify for inpatient Hospice. Plan to d/c abx and IV fluids, and liberalize PO intake to focus on quality of life. Patient's supports this. She is understanding of the terminal nature of his illness. We will focus on comfort care per today's discussion. 10/24/16 10:44 Subjective: Patient's wishing to pursue comfort care / Hospice Objective: Vital Signs Temp Pulse Resp BP Pulse Ox 36.4 C 47 L 20 162/86 H 96 10/24/16 07:47 10/24/16 07:47 10/24/16 07:47 10/24/16 10:03 10/24/16 07:47 Microbiology 10/18/16 11:20 Blood Culture - Final Blood 10/18/16 11:17 Blood Culture - Final Blood Laboratory Results 10/23/16 04:48 10/23/16 04:48 10/23/16 10/24/16 10/25/16 05:59 05:59 05:59 Intake Total 2763 450 1800 Output Total 150 100 Balance 2613 350 1800 PT 35.5 SEC (12.0-15.0) H 10/22/16 04:50 INR 3.48 (0.83-1.16) H 10/22/16 04:50 - Time Spent With Patient Time Spent With Patient: 25 minutes Physical Exam - Physical Exam General Appearance: other (sitting in chair/ NAD) Neuro/Psych: other (confused. Unable to answer questions) ICD10 Worksheet Patient Problems: Problems Problem Status Diagnosed Elevated troponin Acute Encephalopathy Acute Expressive aphasia Acute Glioblastoma multiforme Acute Palliative care encounter Acute Weakness Acute Aphasia Acute
--- NOTE | 2016-10-24 10:51 | HOSPPROG ---
Hospitalist Progress Note Assessment/Plan: A/P 71 y/o male with GBM presenting with # aspiration pneumonitis (improving) -monitor off abx # worsening hypernatremia and suspected dehydration, with poor oral intake (no labs ordered for today) -will buff cap iv # ongoing dysphagia largely neurologic in origin -pt and would like to proceed with diet as tolerated. They understand and accept the risk of further aspiration # expressive aphasia of neurologic origin due to his glioblastoma # Failure to thrive with severe deconditioning generalized weakness # progressive glioblastoma multiforme # History of seizure disorder # History of PE and DVT dispo: Pt and would like to proceed with hospice care. Will observe off of ivf and antibiotics to help further determine what he will need on discharge. Subjective: no new complaints Objective: Vital Signs Temp Pulse Resp BP Pulse Ox 36.4 C 47 L 20 162/86 H 96 10/24/16 07:47 10/24/16 07:47 10/24/16 07:47 10/24/16 10:03 10/24/16 07:47 Microbiology 10/18/16 11:20 Blood Culture - Final Blood 10/18/16 11:17 Blood Culture - Final Blood Laboratory Results 10/23/16 04:48 10/23/16 04:48 10/23/16 10/24/16 10/25/16 05:59 05:59 05:59 Intake Total 2763 450 1800 Output Total 150 100 Balance 2613 350 1800 PT 35.5 SEC (12.0-15.0) H 10/22/16 04:50 INR 3.48 (0.83-1.16) H 10/22/16 04:50 - Physical Exam Constitutional: no apparent distress Cardiovascular: regular rate and rhythym, no murmur, rub, or gallop Respiratory: no respiratory distress, no rales or rhonchi, clear to auscultation , No rhonchi Gastrointestinal: normoactive bowel sounds, soft, non-tender abdomen, no palpable masses ICD10 Worksheet Patient Problems: Problems Problem Status Diagnosed Elevated troponin Acute Encephalopathy Acute Expressive aphasia Acute Glioblastoma multiforme Acute Palliative care encounter Acute Weakness Acute Aphasia Acute
[2016-10-24 15:21] LABS: INR 1.59 (0.83-1.16)
[2016-10-24 22:03] VITALS: O2SAT 92
[2016-10-25] MEDS: DEXAMETHASONE 2 MG TAB PO SCH ×2 (04:07→11:32)
[2016-10-25] MEDS: LACOSAMIDE 50 MG TAB PO SCH ×2 (04:07→11:32)
[2016-10-25 06:38] LABS: INR 1.44 (0.83-1.16); PROTIME(PATIENT) 17.5 SEC (12.0-15.0)
[2016-10-25] MEDS ORDERED: WARFARIN SODIUM 5 MG TAB PO ONE (08:39)
[2016-10-25] MEDS: levETIRAcetam 500 MG/5 ML UDCUP PO SCH (11:32)
[2016-10-25] MEDS: LISINOPRIL 20 MG TAB PO SCH (11:33)
--- NOTE | 2016-10-25 14:47 | GDS ---
[f rep st] DISCHARGE SUMMARY DISCHARGE DIAGNOSES: 1. Glioblastoma multiforme, presenting with increased weakness. 2. Dysphagia. 3. Seizure disorder. 4. History of deep venous thrombosis/pulmonary embolus. 5. Possible right lower lobe aspiration pneumonia versus acute pneumonitis from aspiration. CONSULTANTS: [facility], Palliative Care Medicine. HOSPITAL COURSE AND STAY BY PROBLEM: Glioblastoma multiforme: Patient was admitted to the hospital with increased weakness, where he was found to have a possible aspiration pneumonia versus pneumoniti s. He was treated with 5 days of IV ertapenem. On 10/24/2016, antibiotics were stopped. The patien t was started on a regular diet with the understanding that he may continue to aspirate. He was seen by Hospice, where the family was accepting hospice and plan for him to be discharged today either to a hospice care facility or to a fpc facility with hospice and further rehabilitation. PHYSICAL EXAM ON DAY OF DISCHARGE: VITAL SIGNS: Blood pressure 143/90 pulse is 70, respiratory rate 16, O2 sat 92% on 2 L, temperature afebrile. GENERAL: No acute distress. HEART: S1, S2. LUNGS: Clear. ABDOMEN: Soft. EXTREMITIES: No edema. PROCEDURES DONE THIS HOSPITAL STAY: None. DISCHARGE MEDICATIONS: Please refer to discharge medication reconciliation in [facility] for full deta ils. Below is a preliminary list. Home medications that have been discontinued: Hydrochlorothiazide out of concerns for causing dehydr ation. All other home medications were continued at his usual home doses. DISCHARGE INSTRUCTIONS: The patient will be discharged from the hospital with hospice care. He sabina rod follow up with his oncologist as directed. /[id number]/MODL
--- NOTE | 2016-10-25 15:23 | PDIAF ---
- Diagnosis Diagnosis: GBM Code Status: Do Not Resuscitate - Medication Management Discharge Medications: Medications to Continue on Transfer Bevacizumab [Avastin] 0 mg IV Q14D 11/04/15 [Last Taken 10/12/16] Lisinopril [Zestril 20 mg (*)] 20 mg PO DAILY #0 tab 11/11/15 [Last Taken ] Acetaminophen [Tylenol 325mg (*)] 325 mg PO DAILY PRN 10/17/16 [Last Taken Unknown] Dexamethasone [Decadron 4 MG (*)] 2 mg PO BID 10/17/16 [Last Taken 10/16/16] Lacosamide [Vimpat 50 mg (*)] 150 mg PO BID 10/17/16 [Last Taken 10/17/16] Polyethylene Glycol 3350 [Miralax 17 gm (*)] 17 gm PO DAILY PRN 10/17/16 [Last Taken Unknown] Warfarin Sodium [Coumadin 5MG (*)] 10 mg PO SUTH 10/17/16 [Last Taken 10/16/16 10mg] Warfarin Sodium [Coumadin 7.5MG (*)] 7.5 mg PO [id number] 10/17/16 [Last Taken Unknown] levETIRAcetam [Keppra Oral Liquid] 15 ml PO BID 10/17/16 [Last Taken 10/17/16] Discharge Medications: Refer to the Discharge Home Medication list for PRN reason. - Orders Services needed: Home Care, Registered Nurse, Physical Therapy, Occupational Therapy Home Care Face to Face: I certify that this patient was under my care and that I had the required [id number] encounter meeting the encounter requirements on the discharge day. My findings support the fact that the patient is homebound as defined in CMS Chapter 7 Medicare Benefits Manual 30.1.1, The condition of the patient is such that there exists a normal inability to leave home and consequently, leaving home would require a considerable and taxing effort. - Follow Up Care Current Providers and Referrals: Patient,NotPresent [Unknown] - As per Instructions
[2016-10-25 17:15] VITALS: BP 143/94; PULSE 76; RESP 20; TEMP 98
== END 2016-10-25 17:18 | disposition hospice, home (50) | DRG 177 ==
LOC: EDUNIT# → F1N 20:02
PROVIDERS: ADMIT Internal Medicine; ATTEND Family Medicine
DX: J69.0 Pneumonitis due to inhalation of food and vomit (principal); R13.10 Dysphagia, unspecified; E87.0 Hyperosmolality and hypernatremia; E86.0 Dehydration; C71.1 Malignant neoplasm of frontal lobe; G93.6 Cerebral edema; R47.01 Aphasia; R53.1 Weakness; G40.909 Epilepsy, unspecified, not intractable, without status epilepticus; I10 Essential (primary) hypertension; Z86.711 Personal history of pulmonary embolism; Z86.718 Personal history of other venous thrombosis and embolism
CPT/HCPCS: 92526-GN; 92610-GN; 96365; 97110-GP; 97116-GP; 97162-GP; 97165-GO; 97530-GO; 97530-GP; 97535-GO; G8978-GP-CK; G8979-GP-CI; G8987-GO-CK; G8988-GO-CI; G8996-GN-CJ; G8996-GN-CL; G8997-GN-CI; G8997-GN-CJ; G8998-GN-CJ; J1335; J1650; J1953